=== PATIENT | female | born 1995 | race Caucasian/White ===

== ENCOUNTER 2022-08-24 03:24 | Day surgery (SDC) | payer OTHER ==
[~2022-08-24] VITALS: Ht 170.2 cm; Wt 101.5 kg
[2022-08-24 04:25] LABS: APPEARANCE, URINE CLEAR (CLEAR); BACTERIA, URINE AUTO NEGATIVE (NEGATIVE); BILIRUBIN, URINE AUTO NEGATIVE (NEGATIVE); BLOOD, URINE BLOOD NEGATIVE (NEGATIVE); COLOR, URINE STRAW (YELLOW); GLUCOSE, URINE (UA) AUTO NEGATIVE (NEGATIVE); KETONE, URINE AUTO NEGATIVE (NEGATIVE); LEUKOCYTE ESTERASE, URINE AUTO NEGATIVE (NEGATIVE); NITRITE, URINE AUTO NEGATIVE (NEGATIVE); PROTEIN, URINE AUTO NEGATIVE (NEGATIVE); RBC, URINE AUTO 0 /HPF (0-3); SPECIFIC GRAVITY URINE AUTO 1.004 (1.002-1.035); SQUAMOUS EPITHELIAL CELL UR AU 0 /HPF (0-6); UROBILINOGEN, URINE AUTO 0.2 mg/dL (0.0-2.0); WBC, URINE AUTO 0 /HPF (0-3)
[2022-08-24 04:28] LABS: BASO # 0.1 10^3/uL (0.0-0.2); BASO % 0.5 % (0.0-1.0); EOS # 0.1 10^3/uL (0.0-0.5); EOS % 0.4 % (0.0-3.0); HEMATOCRIT 41.5 % (36.0-47.0); HEMOGLOBIN 14.3 g/dl (12.0-15.5); LYMPH # 1.7 10^3/uL (1.5-5.0); LYMPH % 10.3 % (24.0-44.0); MEAN CORPUSCULAR HEMOGLOBIN 29.3 pg (27.0-33.0); MEAN CORPUSCULAR HGB CONC 34.5 g/dl (32.0-36.5); MONO % 6.1 % (2.0-8.0); NEUTROPHILS # 13.8 10^3/uL (1.5-8.5); NEUTROPHILS % 82.2 % (36.0-66.0); PLATELET COUNT, AUTOMATED 311 10^3/uL (150-450); RED BLOOD COUNT 4.88 10^6/uL (4.00-5.40); WHITE BLOOD COUNT 16.8 10^3/uL (4.0-10.0)
[2022-08-24 04:49] LABS: LIPASE 33 U/L (12-53)
[2022-08-24 04:51] LABS: ALBUMIN 4.5 G/DL (3.2-5.2); ALKALINE PHOSPHATASE 107 U/L (46-116); ALT/SGPT 19 U/L (7.0-40); AST/SGOT 11 U/L (<34); BILIRUBIN,DIRECT 0.3 MG/DL (<0.4); BILIRUBIN,TOTAL 1.1 MG/DL (0.3-1.2); BLOOD UREA NITROGEN 16 MG/DL (9-23); CALCIUM LEVEL 9.2 MG/DL (8.5-10.1); CARBON DIOXIDE LEVEL 25 MMOL/L (20-31); CHLORIDE LEVEL 103 MMOL/L (98-107); CREATININE FOR GFR 0.64 MG/DL (0.55-1.30); GLOMERULAR FILTRATION RATE > 60.0 (>60); GLUCOSE, FASTING 111 MG/DL (60-100); POTASSIUM SERUM 3.7 MMOL/L (3.5-5.1); SODIUM LEVEL 137 MMOL/L (136-145); TOTAL PROTEIN 7.9 G/DL (5.7-8.2)
[2022-08-24 05:05] LABS: HCG, SERUM QUALITATIVE NEGATIVE (NEGATIVE)
[2022-08-24] MEDS ORDERED: NS 1,000 ML IV ONE (06:10)
[2022-08-24] MEDS ORDERED: KETOROLAC 30 MG/ML 1ML VIAL IV ONE (06:10)
[2022-08-24] MEDS ORDERED: ISOVUE-370 76% 100ML VIAL As Ordered ONE (06:14)
[2022-08-24] MEDS ORDERED: MULTTAB20 PO (06:41)
[2022-08-24] MEDS ORDERED: PIPERACILLIN/TAZOBACTAM SOD 3.375 GM in D5W MINI-BAG PLUS 50 ML IV ONE (09:20)
[2022-08-24] MEDS ORDERED: ONDANSETRON 4MG 2ML VIAL IV PRN ×2 (12:10→21:35)
[2022-08-24] MEDS ORDERED: IBUP200T46 PO (13:37)
[2022-08-24] MEDS ORDERED: HOME MED LIST COMPLETE! XX SCH (13:40)
[2022-08-24] MEDS ORDERED: PIPERACILLIN/TAZOBACTAM SOD 3.375 GM in D5W MINI-BAG PLUS 50 ML IV SCH (15:00)
[2022-08-24] MEDS: LR 1,000 ML IV SCH (17:06)
[2022-08-24] MEDS: PIPERACILLIN/TAZOBACTAM SOD 3.375 GM in D5W MINI-BAG PLUS 50 ML IV SCH (19:27)
[2022-08-24] MEDS ORDERED: LIDOCAINE 1% SDV 30ML VIAL As Ordered ONE (20:24)
[2022-08-24] MEDS ORDERED: ONDANSETRON 4MG 2ML VIAL As Ordered ONE (20:26)
[2022-08-24] MEDS ORDERED: propofoL 200 MG/20 ML VIAL As Ordered ONE (20:26)
[2022-08-24] MEDS ORDERED: KETOROLAC 60MG 2ML VIAL As Ordered ONE (20:26)
[2022-08-24] MEDS ORDERED: ROCURONIUM BROMIDE 50MG/5ML VIAL As Ordered ONE (20:26)
[2022-08-24] MEDS ORDERED: LIDOCAINE 2% 100MG/5ML SDV (FOR ANES.) As Ordered ONE (20:26)
[2022-08-24] MEDS ORDERED: SUGAMMADEX SODIUM 500 MG/5 ML VIAL (BRIDION) As Ordered ONE (20:26)
[2022-08-24] MEDS ORDERED: ACETAMINOPHEN 1000MG 100ML IV BAG As Ordered ONE (20:26)
[2022-08-24] MEDS ORDERED: MIDAZOLAM INJ 2MG/2ML VIAL As Ordered ONE (20:27)
[2022-08-24] MEDS ORDERED: fentaNYL 100 MCG/2 ML INJECTION As Ordered ONE (20:27)
[2022-08-24] MEDS ORDERED: LR 1,000 ML IV SCH (21:35)
[2022-08-24] MEDS ORDERED: HYDROMORPHONE HCL 0.5 MG/ 0.5 ML SYRINGE IV PRN (21:35)
[2022-08-24] MEDS ORDERED: METOCLOPRAMIDE INJ 10MG/2ML VIAL IV PRN (21:35)
[2022-08-24] MEDS ORDERED: oxyCODONE 5MG TAB PO PRN (21:35)
[2022-08-24] MEDS ORDERED: fentaNYL 100 MCG/2 ML INJECTION IV PRN (21:35)
[2022-08-24] MEDS ORDERED: PERCOCET 5MG/325MG TAB PO PRN ×2 (21:50)
[2022-08-24 22:36] VITALS: BP 137/73; TEMP 96.3; O2SAT 93
[2022-08-24 23:08] VITALS: BP 132/64; TEMP 97.6; O2SAT 97
[2022-08-25 00:08] VITALS: BP 141/79; TEMP 95.6; O2SAT 95
[2022-08-25 01:08] VITALS: BP 135/76; TEMP 97.1; O2SAT 97
[2022-08-25 02:00] VITALS: BP 140/72; TEMP 97.2; O2SAT 97
[2022-08-25] MEDS: LR 1,000 ML IV SCH ×2 (02:48→08:10)
[2022-08-25] MEDS: KETOROLAC 30 MG/ML 1ML VIAL IV SCH ×2 (02:48→08:07)
[2022-08-25] MEDS: PIPERACILLIN/TAZOBACTAM SOD 3.375 GM in D5W MINI-BAG PLUS 50 ML IV SCH ×2 (02:48→08:06)
[2022-08-25 06:23] VITALS: BP_SYST 146; BP_SYST 46; BP_DIAS 79; TEMP 97.6; O2SAT 95
[2022-08-25 08:34] LABS: BASO % 0.2 % (0.0-1.0); HEMATOCRIT 34.7 % (36.0-47.0); LYMPH # 1.2 10^3/uL (1.5-5.0); LYMPH % 10.5 % (24.0-44.0); MEAN CORPUSCULAR HEMOGLOBIN 29.6 pg (27.0-33.0); MEAN CORPUSCULAR HGB CONC 33.7 g/dl (32.0-36.5); MEAN CORPUSCULAR VOLUME 87.8 fl (80.0-96.0); MONO # 0.5 10^3/uL (0.0-0.8); MONO % 4.1 % (2.0-8.0); NEUTROPHILS # 9.3 10^3/uL (1.5-8.5); NEUTROPHILS % 84.8 % (36.0-66.0); PLATELET COUNT, AUTOMATED 253 10^3/uL (150-450); RED BLOOD COUNT 3.95 10^6/uL (4.00-5.40); WHITE BLOOD COUNT 10.9 10^3/uL (4.0-10.0)
[2022-08-25 08:40] LABS: HEMOGLOBIN 11.7 g/dl (12.0-15.5)
[2022-08-25] MEDS ORDERED: PERCOCET PO (10:37)
== END 2022-08-25 12:25 | disposition home or self-care (01) ==
LOC: M ED 03:24 → M SDC 03:25 → M MS5PR 23:00 → M SDC 08-25 12:25
PROVIDERS: ATTEND Surgery
DX: K35.30 Acute appendicitis with localized peritonitis, without perforation or gangrene (principal); D72.829 Elevated white blood cell count, unspecified
CPT/HCPCS: 36415; 44970; 74177; 80048; 80076; 81001; 83690; 84703; 85025; 87635; 88304; 96365; 96366; 96375; 96376; 99284; J0131; J1100; J1885; J2250; J2405; J2543; J3010; Q9967; S0020

== ENCOUNTER 2022-09-01 16:54 | Emergency (ER) | payer OTHER ==
[~2022-09-01] VITALS: Ht 170.2 cm; Wt 98.7 kg
[~2022-09-01 16:54] MED LIST: IBUP200T46 PO; MULTTAB20 PO; PERCOCET PO
[2022-09-01 18:49] VITALS: BP 144/93; TEMP 97.4; O2SAT 98
== END 2022-09-01 18:50 | disposition home or self-care (01) ==
LOC: M ED 16:54
DX: Z48.817 Encounter for surgical aftercare following surgery on the skin and subcutaneous tissue (principal); Z79.1 Long term (current) use of non-steroidal anti-inflammatories (NSAID); Z79.899 Other long term (current) drug therapy

== ENCOUNTER 2022-11-11 17:01 | Emergency (ER) | payer OTHER ==
[~2022-11-11] VITALS: Ht 170.2 cm; Wt 98.2 kg
[2022-11-11 22:01] LABS: BASO # 0.1 10^3/uL (0.0-0.2); BASO % 0.8 % (0.0-1.0); EOS # 0.1 10^3/uL (0.0-0.5); EOS % 0.8 % (0.0-3.0); HEMATOCRIT 39.8 % (36.0-47.0); HEMOGLOBIN 13.4 g/dl (12.0-15.5); LYMPH % 27.1 % (24.0-44.0); MEAN CORPUSCULAR HEMOGLOBIN 30.4 pg (27.0-33.0); MEAN CORPUSCULAR HGB CONC 33.7 g/dl (32.0-36.5); MEAN CORPUSCULAR VOLUME 90.2 fl (80.0-96.0); MONO # 0.6 10^3/uL (0.0-0.8); MONO % 5.5 % (2.0-8.0); NEUTROPHILS # 7.2 10^3/uL (1.5-8.5); NEUTROPHILS % 65.3 % (36.0-66.0); PLATELET COUNT, AUTOMATED 330 10^3/uL (150-450); RED BLOOD COUNT 4.41 10^6/uL (4.00-5.40)
[2022-11-11 22:22] LABS: LIPASE 39 U/L (12-53)
[2022-11-11 22:24] LABS: ALBUMIN 4.3 G/DL (3.2-5.2); ALKALINE PHOSPHATASE 86 U/L (46-116); ALT/SGPT 14 U/L (7.0-40); AST/SGOT < 8 U/L (<34); BILIRUBIN,DIRECT 0.2 MG/DL (<0.4); BILIRUBIN,TOTAL 0.6 MG/DL (0.3-1.2); BLOOD UREA NITROGEN 12 MG/DL (9-23); CALCIUM LEVEL 9.2 MG/DL (8.5-10.1); CARBON DIOXIDE LEVEL 27 MMOL/L (20-31); CHLORIDE LEVEL 104 MMOL/L (98-107); CK-MB VALUE MASS < 1.0 NG/ML (<3.6); CPK CREATINE PHOSPHOKINASE 79 U/L (34-145); CREATININE FOR GFR 0.58 MG/DL (0.55-1.30); GLOMERULAR FILTRATION RATE > 60.0 (>60); GLUCOSE, FASTING 83 MG/DL (60-100); MB/CK RELATIVE INDEX 1.26 (< OR =4); POTASSIUM SERUM 3.7 MMOL/L (3.5-5.1); SODIUM LEVEL 140 MMOL/L (136-145); TOTAL PROTEIN 7.7 G/DL (5.7-8.2)
[2022-11-11 23:03] LABS: HCG, SERUM QUALITATIVE NEGATIVE (NEGATIVE)
[2022-11-12] MEDS ORDERED: HYDR-643 PO (06:15)
[2022-11-12 06:19] VITALS: BP 142/84; TEMP 97.3; O2SAT 99
== END 2022-11-12 06:28 | disposition home or self-care (01) ==
LOC: M ED 17:01
DX: R07.9 Chest pain, unspecified (principal); F41.0 Panic disorder [episodic paroxysmal anxiety]; Z79.899 Other long term (current) drug therapy